=== PATIENT | male | born 2000 | race Caucasian/White ===

== ENCOUNTER 2021-11-05 10:37 | Emergency (ER) | payer SELFPAY ==
[~2021-11-05] VITALS: Ht 175.3 cm; Wt 65.8 kg
[2021-11-05 10:38] VITALS: BP 126/79
--- NOTE | 2021-11-05 10:43 | NUR ---
PT AMB TO BED 9.
[2021-11-05] MEDS ORDERED: KETOROLAC 30 MG/ML VIAL IM ONE (11:05)
--- NOTE | 2021-11-05 11:05 | NUR ---
21 y/o male, c/o right shoulder pain radiates to bicep area increases with movement. pt denies any recent injury or overexertion, states it has been hurting for a month and suspects it may have to do with lifting heavy objects at work. denies nausea, vomiting, diarrhea. skin is pink/warm/dry. a&o x4 with even and steady gait. lungs clear bl, heart rate even and regular. pt denies any fever, cp, sob, or cough at this time. pt states pain is 8/10 at this time. vss. patient positioned for comfort. hob elevated. bed down. ermd made aware of pt. pmh: denies nka med: denies
[2021-11-05] MEDS ORDERED: IBUP-2213 PO (11:39)
[2021-11-05] MEDS ORDERED: DICL100G5 TP (11:39)
[2021-11-05 12:17] VITALS: BP 126/79
--- NOTE | 2021-11-05 12:18 | NUR ---
Patient discharged with v/s stable. Written and verbal after care instructions given and explained. Patient alert, oriented and verbalized understanding of instructions. Ambulatory with mother to car. All questions addressed prior to discharge. ID band removed. Patient advised to follow up with PMD. Rx of ibuprofen, diclofenac (sent) given. Patient educated on indication of medication including possible reaction and side effects. Opportunity to ask questions provided and answered. work note and copy of xray given
== END 2021-11-05 12:17 | disposition home or self-care (01) ==
LOC: MED 10:37
DX: S46.911A Strain of unspecified muscle, fascia and tendon at shoulder and upper arm level, right arm, initial encounter (principal); Z79.1 Long term (current) use of non-steroidal anti-inflammatories (NSAID); X50.0XXA Overexertion from strenuous movement or load, initial encounter; Y92.89 Other specified places as the place of occurrence of the external cause; Y93.89 Activity, other specified; Y99.8 Other external cause status
CPT/HCPCS: 73030; 96372; 99283; J1885; Q0092